=== PATIENT | female | born 1985 | race American Indian/Alaskan Native ===

== ENCOUNTER 2019-09-23 12:43 | Emergency (ER) | payer BC ==
[2019-09-23 13:39] VITALS: BP 139/80
== END 2019-09-23 17:04 | disposition left against medical advice (07) ==
LOC: ED 12:43
DX: R05 Cough (principal); R06.02 Shortness of breath; Z53.21 Procedure and treatment not carried out due to patient leaving prior to being seen by health care provider

== ENCOUNTER 2021-10-09 08:39 | Emergency (ER) | payer BC, OTHER ==
--- NOTE | 2021-10-09 08:57 | Emergency Department Report ---
ED General Adult HPI - General Chief complaint: Allergic Reaction Stated complaint: ALLERGIC REACTION Time Seen by Provider: 10/09/21 08:56 Source: patient, EMS (Verbal report received from emergency medical services. EMS documentation not available at time of chart dictation ), RN notes reviewed Mode of arrival: Stretcher Limitations: No Limitations - History of Present Illness Initial comments: This patient is a pleasant 35-year-old female who reports that she is not , who presents to the ER today with a complaint of possible allergic toney ction, after drinking coffee in which she suspects had almond milk. After consumption of the coffee a few hours ago, she developed throat tightness, and pruritus. She used her epinephrine pen, and called 911. Emergency medical services reports that they gave epi, Benadryl, and steroids. The patient believes that her symptoms have resolved at this time. She feels like she is at her baseline. She is asking to be discharged and also drink water without difficulty. She denies additional injuries and complaints, and reports that prior to consumption of coffee with possible almond milk, she was in her usual state of health. -: Sudden Consistency: now resolved Improves with: medication Worsens with: none Associated Symptoms: denies other symptoms - Related Data Previous Rx's Medication Instructions Recorded Last Taken Type Albuterol Sulfate [Proair 90 mcg IH Q4HR PRN #2 aer.[email or web address] 10/09/21 Unknown Rx Respiclick] EPINEPHrine [Epipen 2-Alvin] 0.3 mg IM DAILY PRN #2 ml 10/09/21 Unknown Rx Famotidine [Pepcid] 20 mg PO BID #10 tablet 10/09/21 Unknown Rx diphenhydrAMINE [Benadryl] 50 mg PO Q8HR PRN #20 capsule 10/09/21 Unknown Rx predniSONE [Deltasone] 40 mg PO QDAY #8 tab 10/09/21 Unknown Rx Allergies Allergy/AdvReac Type Severity Reaction Status Date / Time almond AdvReac Unknown Verified 10/09/21 08:44 peanut AdvReac Unknown Verified 10/09/21 08:44 Penicillins AdvReac Unknown Verified 10/09/21 08:44 ED Review of Systems ROS: Stated complaint: ALLERGIC REACTION Other details as noted in HPI Comment: All other systems reviewed and negative ENT: other (Throat tightness, now resolved). denies: throat pain Skin: pruritus ED Past Medical Hx - Past Medical History Hx Asthma: Yes - Surgical History Additional Surgical History: Bilatteral ACL repair. Tonsilectomy - Medications Home Medications: Home Medications Medication Instructions Recorded Confirmed Last Taken Type Albuterol Sulfate [Proair 90 mcg IH Q4HR PRN #2 aer.pow.ba 10/09/21 Unknown Rx Respiclick] EPINEPHrine [Epipen 2-Alvin] 0.3 mg IM DAILY PRN #2 ml 10/09/21 Unknown Rx Famotidine [Pepcid] 20 mg PO BID #10 tablet 10/09/21 Unknown Rx diphenhydrAMINE [Benadryl] 50 mg PO Q8HR PRN #20 capsule 10/09/21 Unknown Rx predniSONE [Deltasone] 40 mg PO QDAY #8 tab 10/09/21 Unknown Rx ED Physical Exam - General Limitations: No Limitations General appearance: alert, in no apparent distress - Head Head exam: Present: atraumatic, normocephalic - Eye Eye exam: Present: normal appearance, EOMI. Absent: nystagmus - ENT ENT exam: Present: normal exam, normal orophraynx, mucous membranes moist, normal external ear exam, other (Patient speaking in full sentences. She is not stridulous) - Neck Neck exam: Present: normal inspection, full ROM. Absent: tenderness, meningismus - Respiratory Respiratory exam: Present: normal lung sounds bilaterally. Absent: respiratory distress, wheezes, rales, rhonchi, stridor, decreased breath sounds - Cardiovascular Cardiovascular Exam: Present: regular rate, normal rhythm, normal heart sounds. Absent: bradycardia, tachycardia, irregular rhythm, systolic murmur, diastolic murmur, rubs, gallop - GI/Abdominal GI/Abdominal exam: Present: soft. Absent: distended, tenderness, guarding, rebound, rigid, pulsatile mass - Extremities Exam Extremities exam: Present: normal inspection, full ROM, other (2+ pulses noted in the bilateral upper extremities. There is no long bony tenderness. The muscular compartments are soft. The pelvis is stable.). Absent: pedal edema, calf tenderness - Back Exam Back exam: Present: normal inspection, full ROM. Absent: tenderness, CVA tenderness (R), CVA tenderness (L), paraspinal tenderness, vertebral tenderness - Neurological Exam Neurological exam: Present: alert, oriented X3, normal gait, other (No facial droop. Tongue midline. Extraocular movements intact bilaterally. Facial sensation intact to light touch in V1, V2, V3 distribution bilaterally. 5 and a 5 strength in 4 extremities. Sensation intact to light touch in 4 ext remities.). Absent: motor sensory deficit - Psychiatric Psychiatric exam: Present: normal affect, normal mood - Skin Skin exam: Present: warm, dry, intact, normal color. Absent: rash ED Course Vital Signs 10/09/21 10/09/21 10/09/21 08:42 08:55 09:01 Temperature Pulse Rate 95 H 80 90 Respiratory 17 26 H Rate Blood Pressure 122/81 Blood Pressure 135/98 [Left] O2 Sat by Pulse 95 99 98 Oximetry 10/09/21 10/09/21 10/09/21 09:15 09:31 09:36 Temperature 98 F Pulse Rate 78 89 94 H Respiratory 21 17 16 Rate Blood Pressure 130/81 130/81 118/73 Blood Pressure [Left] O2 Sat by Pulse 100 99 100 Oximetry 10/09/21 10/09/21 10/09/21 09:40 09:45 10:01 Temperature Pulse Rate 85 82 Respiratory 22 11 L 26 H Rate Blood Pressure 118/81 120/72 Blood Pressure [Left] O2 Sat by Pulse 100 100 100 Oximetry 10/09/21 10/09/21 10/09/21 10:15 10:31 10:45 Temperature Pulse Rate 80 90 84 Respiratory 20 19 13 Rate Blood Pressure 112/64 102/57 107/51 Blood Pressure [Left] O2 Sat by Pulse 100 99 100 Oximetry - Pulse Oximetry Interpretation Digit-Finger Initial Pulse Oximetry Readin O2 Sat by Pulse Oximetry: 99 Actions Taken: none ED Medical Decision Making - Lab Data Vital Signs 10/09/21 10/09/21 10/09/21 08:42 08:55 09:01 Temperature Pulse Rate 95 H 80 90 Respiratory 17 26 H Rate Blood Pressure 122/81 Blood Pressure 135/98 [Left] O2 Sat by Pulse 95 99 98 Oximetry 10/09/21 10/09/21 10/09/21 09:15 09:31 09:36 Temperature 98 F Pulse Rate 78 89 94 H Respiratory 21 17 16 Rate Blood Pressure 130/81 130/81 118/73 Blood Pressure [Left] O2 Sat by Pulse 100 99 100 Oximetry 04/10/09/21 10/09/21 09:40 09:45 10:01 Temperature Pulse Rate 85 82 Respiratory 22 11 L 26 H Rate Blood Pressure 118/81 120/72 Blood Pressure [Left] O2 Sat by Pulse 100 100 100 Oximetry 10/09/21 10/09/21 10/09/21 10:15 10:31 10:45 Temperature Pulse Rate 80 90 84 Respiratory 20 19 13 Rate Blood Pressure 112/64 102/57 107/51 Blood Pressure [Left] O2 Sat by Pulse 100 99 100 Oximetry - Medical Decision Making Differential diagnosis, including the not limited to: Allergic reaction Assessment and plan: 35-year-old female with clinically resolved allergic reaction. She is saturating at 100% on room air, drinking water, phonating without difficulty, on her cell phone, and does not appear to be in any acute distress. Patient is observed in this ER for hours without clinical deterioration, and I have reevaluated this patient multiple times, and her exam is unremarkable. The patient drank water without difficulty, and she is requesting to be discharged. Patient educated as to the natural history and of allergic reactions and is dependable to return to the emergency room if her symptoms worsen. She understands to avoid provocative agents. Return precautions reviewed. All questions answered. Critical care attestation.: If time is entered above; I have spent that time in minutes in the direct care of this critically ill patient, excluding procedure time. ED Disposition Clinical Impression: Allergic reaction Disposition: 01 HOME / SELF CARE / HOMELESS Is pt being admited?: No Does the pt Need Aspirin: No Condition: Good Instructions: Allergies, Adult Additional Instructions: Please avoid consumption of Robbie, peanuts, and any items that patient is allergic to. Patient may use the albuterol as needed for cough and wheezing, epinephrine pen if she develops inability to speak, inability to breathe or throat tightening, Benadryl as needed for itching, we do recommend that the patient take Pepcid twice daily for the next 4 to 5 days, and the steroids as directed for the next 4 to 5 days. We do recommend follow-up with your outpatient primary care doctor within the next week. Please return to the emergency room right away with new pain, worsened pain, migration of pain, projectile vomiting, change in mental status, confusion, inability tolerate liquid feeds, new, worsened or different symptoms not present on the initial emergency room evaluation Referrals: THUY GARCIA MD [Other] - 3-5 Days Forms: Work/School Release Form(ED)
[2021-10-09 12:27] VITALS: BP 114/60
== END 2021-10-09 12:27 | disposition home or self-care (01) ==
LOC: ED 08:39
DX: T78.40XA Allergy, unspecified, initial encounter (principal); X58.XXXA Exposure to other specified factors, initial encounter; Z88.0 Allergy status to penicillin; Z91.010 Allergy to peanuts; J45.909 Unspecified asthma, uncomplicated
CPT/HCPCS: 99283